=== PATIENT | male | born 1985 | race African-American/Black ===

== ENCOUNTER 2020-03-14 17:51 | Emergency (ER) | payer OTHER, SELFPAY ==
[2020-03-14 17:54] VITALS: BP 139/89; PULSE 83; RESP 16; TEMP 36; O2SAT 98
[2020-03-14 18:03] VITALS: BP 142/78; PULSE 80; RESP 18; TEMP 36; O2SAT 99
[2020-03-14 18:39] LABS: Basophils Percent Auto 0.3 % (0.2-1.2); Eosinophils Absolute Auto 0.3 K/mm3 (0-0.3); Eosinophils Percent Auto 4.2 % (0-4.4); Hemoglobin 15.7 g/dL (14.0-18.0); Immature Granulocyte Absolute 0.01 K/mm3 (0.00-0.031); Immature Granulocyte Percent A 0.2 % (0-0.5); Lymphocytes Absolute Auto 1.78 K/mm3 (0.9-3.2); Lymphocytes Percent Auto 27.8 % (18.3-44.2); Mean Corpuscular HGB Conc 34.9 g/dl (32-36); Mean Corpuscular Hemoglobin 28.5 pg (26-34); Mean Corpuscular Volume 81.8 fl (80-100); Monocytes Absolute Auto 0.5 K/mm3 (0.1-0.6); Monocytes Percent Auto 7.6 % (2.6-8.5); Neutrophils Absolute Auto 3.8 K/mm3 (1.3-6.7); Neutrophils Percent Auto 59.9 % (45.5-73.1); Platelet Count Result 271 k/mm3 (150-375); Red Cell Distribution Width 13.5 % (11.5-14.5); White Blood Count 6.4 K/mm3 (4.5-10.0)
[2020-03-14 18:45] LABS: Alanine Aminotransferase 50 U/L (4-50); Albumin Level 4.2 g/dL (3.5-5.1); Alkaline Phosphatase 111 U/L (38-126); Anion Gap 5 mmol/L (8-16); Aspartate Amino Transferase 39 U/L (17-59); Bilirubin,Total 0.5 mg/dL (0.2-1.3); Blood Urea Nitrogen 15 mg/dL (9-20); Calcium 9.2 mg/dL (8.4-10.2); Carbon Dioxide 29 mmol/L (22-30); Chloride 104 mmol/L (98-107); Estimated CRCL calculation 103 ml/min; Estimated Glomerular Filt Rate > 60; Glucose 105 mg/dL (75-110); Lipase 78 U/L (23-300); Potassium 3.8 mmol/L (3.4-5.0); Sodium 138 mmol/L (137-145)
[2020-03-14 19:18] LABS: Add Urine Microscopic? YES; Appearance Urine Clear (Clear); Bacteria Urine Trace /hpf; Bilirubin Urine Negative (Negative); Blood Urine 1+ (Negative); Color Urine Yellow (Yellow); Glucose Urine UA Negative (Negative); Ketones Urine Negative (Negative); Leukocyte Esterase Ur Negative LEU/UL (Negative); Mucus Urine Few /lpf; Nitrate Urine Negative (Negative); Protein Urine Negative (Negative); RBC Urine 0-2 /hpf (0-2); Specific Grav Ur 1.024 (1.001-1.035); Squamous Epithelial Cell Urine Rare /hpf (Few)
--- NOTE | 2020-03-14 19:25 | ED.ABDPAIN ---
HPI - Abdominal Pain General Chief Complaint: Abdominal Pain Stated Complaint: loose stools, abd pain Time Seen by Provider: 03/14/20 17:57 Source: patient Mode of arrival: ambulatory Limitations: no limitations History of Present Illness HPI narrative: Patient presents with chief complaint of needing evaluation to be able to return back to work. Patient states yesterday he had some mild nausea accompanied by loose stools so he called into work. 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 Patient denies any known Covid exposure. Patient denies any symptoms today. Related Data Home Medications Medication Instructions Recorded Confirmed No Home Medications 03/14/20 03/14/20 Allergies Allergy/AdvReac Type Severity Reaction Status Date / Time No Known Allergies Allergy Verified 03/14/20 17:59 Review of Systems Review of Systems: Narrative: CONSTITUTIONAL: Denies fever, chills, or sweats. EYES: Denies visual changes, redness, or discharge. ENT: Denies rhinorrhea, congestion, sore throat, or otalgia. CARDIOVASCULAR: Denies chest pain, palpitations, or edema. RESPIRATORY: Denies cough or dyspnea. GASTROINTESTINAL: Denies abdominal pain, nausea, vomiting, or diarrhea. GENITOURINARY: Denies dysuria or hematuria. SKIN: Denies rash or itching. MUSCULOSKELETAL: Denies back pain, joint pain, or myalgia. NEUROLOGIC: Denies headache, numbness, dizziness, or weakness. PSYCHIATRIC: Denies anxiety or depression. PMFSH Social History Social History Gender identity (if verbalized by the patient): Male Exam Narrative: Exam Narrative: GENERAL: Well-appearing, well-nourished, and in no acute distress. HEAD: Normocephalic, atraumatic. EYES: PERRLA and EOMI. NECK: Supple. No adenopathy or masses. CHEST: Clear to auscultation. No respiratory distress. No wheezes rales or rhonchi HEART: Regular rate and rhythm. No murmur heard. Normal peripheral pulses. ABDOMEN: Soft, nontender quadrant to palpation, nondistended, normal active bowel sounds. EXTREMITIES: Normal range of motion. No edema. SKIN: Warm, dry, no rash. NEURO: No focal deficits. Alert and oriented x3. PSYCH: Normal mood and affect. Course Vital Signs Vital signs: Vital Signs Temperature 96.8 F L 03/14/20 17:54 Pulse Rate 83 03/14/20 17:54 Respiratory Rate 16 03/14/20 17:54 Blood Pressure 139/89 03/14/20 17:54 Pulse Oximetry 98 03/14/20 17:54 Temperature 96.8 F L 03/14/20 18:03 Pulse Rate 80 03/14/20 18:03 Respiratory Rate 18 03/14/20 18:03 Blood Pressure 142/78 H 03/14/20 18:03 Pulse Oximetry 99 03/14/20 18:03 MDM - Abdominal Pain MDM Narrative Medical decision making narrative: Patient lab work, vitals, and urine analysis are negative for acute findings. He denies any symptoms at this time. Patient declines need for Covid testing as he does not have any symptoms and has not had any known exposures. Patient has been instructed if he does begin to be symptomatic he needs to quarantine to be tested. Otherwise patient is ready for discharge at this time. Patient instructed to return to emergency department if he has any emergent symptoms. Differential Diagnosis Differential diagnosis: Likely abdominal pain, acute appendicitis, calculus of kidney, constipation, diverticulitis, endometriosis, gastroenteritis, pancreatitis and small bowel obstruction Lab Data Result diagrams: 03/14/20 18:28 03/14/20 18:28 Labs: Lab Results 03/14/20 03/14/20 03/14/20 Range/Units 18:28 18:28 19:09 WBC 6.4 (4.5-10.0) K/mm3 RBC 5.50 (4.6-6.20) M/mm3 Hgb 15.7 (14.0-18.0) g/dL Hct 45.0 (42.0-52.0)
== END 2020-03-14 19:41 | disposition home or self-care (01) ==
PROVIDERS: Physician Assistant; Emergency Provider Emergency Medicine
DX: R19.7 Diarrhea, unspecified (principal)
CPT/HCPCS: 36415; 80053; 81001; 83690; 85025; 99283

== ENCOUNTER 2020-04-10 08:02 | Emergency (ER) | payer SELFPAY ==
[2020-04-10 08:12] VITALS: BP 134/99; PULSE 70; RESP 16; TEMP 36.6; O2SAT 94
--- NOTE | 2020-04-10 08:50 | ED.EXTPRO ---
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 Patient has superficial laceration on his right pinky finger. Patient denies any other injuries or pain. Related Data Home Medications Medication Instructions Recorded Confirmed No Home Medications 03/14/20 03/14/20 Allergies Allergy/AdvReac Type Severity Reaction Status Date / Time No Known Allergies Allergy Verified 04/10/20 08:24 Review of Systems Review of Systems: All systems reviewed & are unremarkable except as noted in HPI and below PMFSH Social History Social History Gender identity (if verbalized by the patient): Male Exam Const: General: no acute distress HENMT: Head: normal to inspection Eyes: Conjunctivae: conjunctivae normal Neck: Neck: normal visual inspection Resp: Effort & Inspection: normal respiratory effort Neuro: General: patient oriented x3 and moves all extremities Extrem: Other: Superficial laceration fifth digit right hand, neurovascular is intact No repair needed Course Vital Signs Vital signs: Vital Signs Temperature 36.6 C 04/10/20 08:12 Pulse Rate 70 04/10/20 08:12 Respiratory Rate 16 04/10/20 08:12 Blood Pressure 134/99 H 04/10/20 08:12 Pulse Oximetry 94 04/10/20 08:12 Temperature 36.6 C 04/10/20 08:12 Pulse Rate 70 04/10/20 08:12 Respiratory Rate 16 04/10/20 08:12 Blood Pressure 134/99 H 04/10/20 08:12 Pulse Oximetry 94 04/10/20 08:12 Discharge Plan Discharge Clinical Impression: Superficial laceration Patient Disposition: Home, Self-Care Condition: Improved Instructions: Antibiotic Form, Laceration (ED) Prescriptions: No Action No Home Medications RF: 0 Follow-up/Referrals: PHYSICIAN,ENVIRONMENTAL CHANGE ANALYST [Primary Care Provider] - Time of Disposition: 08:53
== END 2020-04-10 09:48 | disposition home or self-care (01) ==
PROVIDERS: Emergency Provider Emergency Medicine
DX: S61.216A Laceration without foreign body of right little finger without damage to nail, initial encounter (principal); W29.0XXA Contact with powered kitchen appliance, initial encounter
CPT/HCPCS: 99282

== ENCOUNTER 2020-05-18 14:37 | Emergency (ER) | payer OTHER, SELFPAY ==
[2020-05-18] VITALS (8 sets, daily range): BP systolic 133–138; BP diastolic 79–102; PULSE 69–78; RESP 7–20; TEMP 35.9; O2SAT 95–98
--- NOTE | ~2020-05-18 | XR_ITS ---
EXAMINATION: XR chest 2V EXAM DATE: 05/18/2020 16:11 INDICATION: Occasional cough, dizziness, lightheadedness, chills for one day. TECHNIQUE: Frontal and lateral projections of the chest obtained and reviewed. There is no prior kimberly dy for comparison. FINDINGS: The lungs are clear. There are no pleural effusions. The cardiomediastinal silhouette is within normal limits. There is no pneumothorax suspected. The bones and soft tissues are unremarkab le. IMPRESSION: Normal chest x-ray exam. Reviewed, dictated and finalized at location A. ULAR RIPSAW OPERATOR IMPRESSION: Normal chest x-ray exam.
--- NOTE | 2020-05-18 15:18 | ECG_ITS ---
Measurements Intervals [place] Rate: 74 P: 43 HI: 157 QRS: 3 QRSD: 90 T: 8 QT: 359 QTc: 398 Interpretive Statements SINUS RHYTHM NORMAL ECG Electronically Signed On 05-19-2020 7:50:05 GLUE JOINTER OPERATOR by Robb Cornejo D.O.
[2020-05-18 15:34] LABS: Basophils Percent Auto 0.5 % (0.2-1.2); Eosinophils Absolute Auto 0.3 K/mm3 (0-0.3); Eosinophils Percent Auto 5.3 % (0-4.4); Hematocrit 46.1 % (42.0-52.0); Hemoglobin 15.9 g/dL (14.0-18.0); Immature Granulocyte Absolute 0.01 K/mm3 (0.00-0.031); Immature Granulocyte Percent A 0.2 % (0-0.5); Lymphocytes Percent Auto 29.7 % (18.3-44.2); Mean Corpuscular HGB Conc 34.5 g/dl (32-36); Mean Corpuscular Hemoglobin 28.4 pg (26-34); Mean Corpuscular Volume 82.5 fl (80-100); Mean Platelet Volume 9.9 fl (7.4-10.4); Monocytes Absolute Auto 0.5 K/mm3 (0.1-0.6); Monocytes Percent Auto 8.6 % (2.6-8.5); Neutrophils Absolute Auto 3.4 K/mm3 (1.3-6.7); Neutrophils Percent Auto 55.7 % (45.5-73.1); Platelet Count Result 281 k/mm3 (150-375); Red Blood Count 5.59 M/mm3 (4.6-6.20); Red Cell Distribution Width 13.6 % (11.5-14.5); White Blood Count 6.1 K/mm3 (4.5-10.0)
[2020-05-18 15:46] LABS: Alanine Aminotransferase 39 U/L (4-50); Albumin Level 4.3 g/dL (3.5-5.1); Alkaline Phosphatase 93 U/L (38-126); Anion Gap 10 mmol/L (8-16); Aspartate Amino Transferase 34 U/L (17-59); Bilirubin,Total 0.6 mg/dL (0.2-1.3); Blood Urea Nitrogen 13 mg/dL (9-20); Calcium 9.3 mg/dL (8.4-10.2); Carbon Dioxide 25 mmol/L (22-30); Chloride 104 mmol/L (98-107); Estimated CRCL calculation 114 ml/min; Estimated Glomerular Filt Rate > 60; Glucose 97 mg/dL (75-110); Sodium 139 mmol/L (137-145)
--- NOTE | 2020-05-18 17:20 | PC.NURSE ---
patient brought back to ED room 13 with c/o an episode of dizziness at home and sweating . denies any other symptoms at this time. patient has been in our waiting area due to no beds available in this ED. no change in patient's condition since triage completed. alert. oriented. 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 EKG done at bedside. labs have been sent by triage staff. updated on expected wait time. call light in reach.
--- NOTE | 2020-05-18 17:33 | ED.DIZZY ---
HPI - Dizziness General Chief Complaint: Dizziness Stated Complaint: bodyaches,chills,dizzy Time Seen by Provider: 05/18/20 17:18 Source: patient Mode of arrival: ambulatory Limitations: no limitations History of Present Illness HPI Narrative: This is a 35 year old male that presents to the ER for lightheadedness today. Associated with chills, myalgias, cough, and sore throat. Denies fever, chest pain or shortness of breath. Related Data Home Medications Medication Instructions Recorded Confirmed No Home Medications 05/18/20 05/18/20 Allergies Allergy/AdvReac Type Severity Reaction Status Date / Time No Known Allergies Allergy Verified 05/18/20 15:16 Review of Systems Review of Systems: Narrative: CONSTITUTIONAL: Reports chills. Denies fever ENT: Reports rhinorrhea, congestion, sore throat CARDIOVASCULAR: Denies chest pain RESPIRATORY: Reports cough. Denies dyspnea. MUSCULOSKELETAL: Reports myalgia. All systems reviewed & are unremarkable except as noted in HPI and below PMFSH Social History Social History (Updated 05/18/20 @ 17:46 by Jaye Dunn PA-C) Smoking status: Never smoker Substance use: current Substance use type: marijuana Gender identity (if verbalized by the patient): Male Exam Narrative: Exam Narrative: GENERAL: Well-appearing, well-nourished, and in no acute distress. HEAD: Normocephalic, atraumatic. EYES: PERRLA and EOMI. ENT: Nares clear, no rhinorrhea or epistaxis. Mucous membranes moist. Oropharynx without tonsillar hypertrophy exudate or other lesions. Bilateral TMs pearly lobato non-bulging NECK: Supple. No adenopathy or masses. CHEST: Clear to auscultation. No respiratory distress. No wheezes rales or rhonchi HEART: Regular rate and rhythm. No murmur heard. Normal peripheral pulses. EXTREMITIES: Normal range of motion. No edema. SKIN: Warm, dry, no rash. NEURO: No focal deficits. Alert and oriented x3. Cranial nerves II through XII grossly intact PSYCH: Normal mood and affect Course Vital Signs Vital signs: Vital Signs Temperature 96.7 F L 05/18/20 15:12 Pulse Rate 78 05/18/20 15:12 Respiratory Rate 18 05/18/20 15:12 Blood Pressure 133/80 05/18/20 15:12 Pulse Oximetry 98 05/18/20 15:12 Temperature 96.7 F L 05/18/20 15:12 Pulse Rate 78 05/18/20 18:50 Respiratory Rate 18 05/18/20 15:12 Blood Pressure 133/80 05/18/20 15:12 Pulse Oximetry 98 05/18/20 15:12 MDM - Dizziness MDM Narrative Medical decision making narrative: Patient presents to the emergency department for cold symptoms. He is afebrile and nontoxic-appearing. Oxygen saturation is remained normal on room air. CBC and metabolic panel without concerning findings. UA without evidence of infection. Chest x-ray is clear. No concerning changes on EKG. SARS-CoV-2 was sent. Patient refused flu swab, orthostatics and IV fluids. Reports he is ready to go home. Was instructed to follow-up with his primary care doctor. He was given warnings to return to the ER Lab Data Attestation: I reviewed the patient's lab results. Result diagrams: 05/18/20 15:23 05/18/20 15:23 Labs: Lab Results 05/18/20 05/18/20 05/18/20 Range/Units 15:23 15:23 17:43 WBC 6.1 (4.5-10.0) K/mm3 RBC 5.59 (4.6-6.20) M/mm3 Hgb 15.9 (14.0-18.0) g/dL Hct 46.1 (42.0-52.0) % MCV 82.5 (80-100) fl MCH 28.4 (26-34) pg MCHC 34.5 (32-36) g/dl RDW 13.6 (11.5-14.5) % Plt Count 281 (150-375) k/mm3 MPV 9.9 (7.4-10.4) fl Immature Gran % (Auto) 0.2 (0-0.5) % Neut % (Auto) 55.7 (45.5-73.1) % Lymph % (Auto) 29.7 (18.3-44.2) % [place] % (Auto) 8.6 H (2.6-8.5) % Eos % (Auto) 5.3 H (0-4.4) % Baso % (Auto) 0.5 (0.2-1.2) % Lymph # (Auto) 1.80 (0.9-3.2) K/mm3 [place] # (Auto) 0.5 (0.1-0.6) K/mm3 Eos # (Auto) 0.3 (0-0.3) K/mm3 Baso # (Auto) 0.0 (0.0-0.1) K/mm3 Abs Immat Gran (auto) 0.01 (0.00-0.031) K/
--- NOTE | 2020-05-18 17:48 | PC.NURSE ---
this RN to bedside. patient refusing IV. wants to wait for all other tests to be resulted. urinal given.
--- NOTE | 2020-05-18 18:00 | PC.NURSE ---
provider updated on patient's condition and refusal of IV. patient ambulated to ED restroom. urine specimen sent to lab. patient does not want any additional vitals at this time. refuses need for orthostatic vitals. alert. oriented.
[2020-05-18 18:09] LABS: Add Urine Microscopic? YES; Appearance Urine Clear (Clear); Bilirubin Urine Negative (Negative); Blood Urine Negative (Negative); Color Urine Yellow (Yellow); Glucose Urine UA Negative (Negative); Ketones Urine Negative (Negative); Leukocyte Esterase Ur Negative LEU/UL (Negative); Mucus Urine Few /lpf; Nitrate Urine Negative (Negative); Protein Urine 1+ mg/dL (Negative); Specific Grav Ur 1.024 (1.001-1.035); WBC Urine 0-3 /hpf
[2020-05-19 19:10] LABS: SARS-CoV-2 RNA PCR Negative
== END 2020-05-18 19:20 | disposition home or self-care (01) ==
PROVIDERS: Emergency Medicine; Physician Assistant; Emergency Provider Emergency Medicine
DX: R42 Dizziness and giddiness (principal); R05 Cough; M79.10 Myalgia, unspecified site; Z20.822 Contact with and (suspected) exposure to COVID-19
CPT/HCPCS: 36415; 71046; 80053; 81001; 85025; 93005; 99283; C9803; U0003; U0005

== ENCOUNTER 2020-11-23 19:45 | Emergency (ER) | payer OTHER, SELFPAY ==
--- NOTE | ~2020-11-23 | XR_ITS ---
XR knee RT min 4V DATE: 11/23/2020 20:16 INDICATION: Generalized knee pain, swelling TECHNIQUE: Portable 4 view examination COMPARISON: None FINDINGS: No fracture or dislocation or joint effusion. Joint spaces are well preserved. No periostea l reaction or bone destruction. No radiopaque intra-articular loose body or chondrocalcinosis. IMPRESSION: Negative Reviewed, dictated and finalized at location A. IMPRESSION: Negative
[2020-11-23 19:55] VITALS: BP 126/70; PULSE 78; RESP 16; TEMP 36.9; O2SAT 99
--- NOTE | 2020-11-23 20:04 | ED.LOWEXIN ---
HPI - Extremity Injury (Lower) General Chief Complaint: Extremity Injury, Lower Stated Complaint: knee swelling, tingling Time Seen by Provider: 11/23/20 19:50 Source: patient Mode of arrival: ambulatory Limitations: no limitations History of Present Illness HPI Narrative: This is a 35 year old male that presents to the ER for right knee pain x 2 days. Reports he went for a run and since has had pain and swelling in the knee. Worse with movement and weight bearing. Relieved with rest. Reports tingling in the leg as well. Has been icing and taking Ibuprofen with little relief. Denies fever, warmth or erythema. Related Data Home Medications Medication Instructions Recorded Confirmed No Home Medications 05/18/20 05/18/20 Allergies Allergy/AdvReac Type Severity Reaction Status Date / Time No Known Allergies Allergy Verified 05/18/20 15:16 Review of Systems Review of Systems: CONSTITUTIONAL: Denies fever SKIN: Denies erythema MUSCULOSKELETAL: Reports joint pain, and myalgia. NEUROLOGIC: Denies numbness All systems reviewed & are unremarkable except as noted in HPI and below PMFSH Past Medical History Medical History (Updated 11/23/20 @ 20:37 by Jaye Dunn PA-C) No active medical problems Social History Social History (Updated 05/18/20 @ 17:46 by Jaye Dunn PA-C) Smoking status: Never smoker Substance use: current Substance use type: marijuana Gender identity (if verbalized by the patient): Male Exam Narrative: GENERAL: Well-appearing, well-nourished, and in no acute distress. HEAD: Normocephalic, atraumatic. EYES: EOMI. EXTREMITIES: Normal range of motion. No obvious edema about the right knee. No erythema or warmth. Normal DP pulses SKIN: Warm, dry, no rash. NEURO: No focal deficits. Alert and oriented x3. PSYCH: Normal mood and affect Course Vital Signs Vital signs: Vital Signs Temperature 98.5 F 11/23/20 19:55 Pulse Rate 78 11/23/20 19:55 Respiratory Rate 16 11/23/20 19:55 Blood Pressure 126/70 11/23/20 19:55 Pulse Oximetry 99 11/23/20 19:55 Temperature 98.5 F 11/23/20 19:55 Pulse Rate 78 11/23/20 19:55 Respiratory Rate 16 11/23/20 19:55 Blood Pressure 126/70 11/23/20 19:55 Pulse Oximetry 99 11/23/20 19:55 MDM - Extremity Injury (Lower) MDM Narrative Medical decision making narrative: Patient presents to the ER for right knee pain after running two days ago. No erythema or warmth of the knee. No obvious edema. He has normal range of motion in the knee. He is neurovascularly intact. Right knee x-rays without acute osseous abnormalities. Patient given Eliud wrap and crutches. Instructed to rest, ice and take [id number] pain medication as needed. He is to follow-up with orthopedics. He was given warnings to return to the ER Imaging Data Radiologist's impression: ITS Impressions Knee X-Ray 11/23/20 20:22 IMPRESSION: Negative Critical Care Time Critical Care Time Critical Care Time: No Discharge Plan Discharge Clinical Impression: Acute internal derangement of knee Qualifiers: Laterality: right Qualified Code(s): M23.91 - Unspecified internal derangement of right knee Patient Disposition: Home, Self-Care Condition: Stable Instructions: Knee Sprain (ED) Additional Instructions: Return to the ER if you experience fever, redness and swelling of your leg, numbness or any other symptoms that are concerning to you Wear ELIUD wrap and use crutches. No weight on the affected leg until able to bear weight without pain. Ice and elevate extremity. Pain medication as needed and directed. Follow up with orthopedics for further care. Prescriptions: No Action No Home Medications RF: 0 Follow-up/Referrals: Jr Zapata MD [Physician] - 1 Week PHYSICIAN NOT ON STAFF,NONSTAFF [Primary Care Provider] -
[2020-11-23] MEDS: ACETAMINOPHEN 500 MG TABLET 1000 MG PO (20:28)
[2020-11-23] MEDS: KETOROLAC (*BKC) 60 MG/2 ML VIAL IM (20:29)
[2020-11-23 21:47] VITALS: BP 120/79; PULSE 71; RESP 18; O2SAT 99
== END 2020-11-23 21:48 | disposition home or self-care (01) ==
PROVIDERS: Emergency Provider Emergency Medicine
DX: M23.91 Unspecified internal derangement of right knee (principal); S89.91XA Unspecified injury of right lower leg, initial encounter; X50.9XXA Other and unspecified overexertion or strenuous movements or postures, initial encounter; Y93.02 Activity, running
CPT/HCPCS: 73564; 96372; 99283; A9270; J1885

== ENCOUNTER 2020-12-21 07:29 | Outpatient (CLI) | payer OTHER, SELFPAY ==
--- NOTE | ~2020-12-21 | MR_ITS ---
EXAMINATION: MR knee RT wo con DATE: 12/21/2020 08:20 INDICATION: Right knee pain with frequent locking and swelling and change in gait. TECHNIQUE: Magnetic resonance imaging (MRI) of the right knee was performed without intravenous contr ast. Sequences included coronal PD-weighted FSE, coronal PD-weighted FS FSE, sagittal T2-weighted FS E, sagittal PD-weighted FS FSE and axial PD weighted fat saturated FSE. COMPARISON: None. FINDINGS: Medial compartment: Medial meniscus is normal. Shallow chondral surface regular date along the anterior weightbearing med ial femoral condyle. Lateral compartment: Complex lateral meniscal tear extending to the anterior horn to the posterior horn. This includes a l ongitudinal tear plane extending with a somewhat oblique vertical configuration extending between the superior and inferior articular surfaces and with secondary longitudinal horizontal tear plane exten ding to the inferior articular surface near the free edge of the posterior horn. Partial-thickness ca rtilage loss with mild chondral surface irregularity along the periphery of the lateral tibial platea u underlying the torn meniscus. Partial-thickness cartilage loss with relatively smooth chondral surf matt along the posterior weightbearing lateral femoral condyle. Patellofemoral compartment: Partial-thickness chondral fissure involving less than 50% the cartilage thickness at the central asp ect of both the medial and lateral patellar facets. Shallow chondral fissure at the inferior aspect t rochlear groove. Ligaments and tendons: Anterior and posterior cruciate ligaments are normal. The medial collateral ligament and fibular jagruti ateral ligament complex are normal. Minimal tendinopathy at the patellar insertions of the distal kavon driceps and proximal patellar tendons. The visualized medial and lateral hamstring tendons as well as the iliotibial band are normal. Fluid: Small right knee joint effusion. No loose osteochondral bodies identified. Osseous/other: Normal marrow signal. No fracture or pathologic marrow replacing process. IMPRESSION: 1. Complex lateral meniscal tear extending from anterior to posterior horn. 2. Minimal to mild osteoarthritis with regions of moderate grade chondromalacia in all 3 compartments . 3. Small right knee joint effusion. Reviewed, dictated and finalized at location A. IMPRESSION: 1. Complex lateral meniscal tear extending from anterior to posterior horn. 2. Minimal to mild osteoarthritis with regions of moderate grade chondromalacia in all 3 compartments. 3. Small right knee joint effusion.
== END 2020-12-21 07:30 | disposition home or self-care (01) ==
PROVIDERS: PCP Internal Medicine; Visit Provider Nurse Practitioner Family
DX: M25.461 Effusion, right knee (principal); S83.271A Complex tear of lateral meniscus, current injury, right knee, initial encounter; X58.XXXA Exposure to other specified factors, initial encounter
CPT/HCPCS: 73721

== ENCOUNTER 2021-01-12 16:19 | Emergency (ER) | payer OTHER, SELFPAY ==
[2021-01-12 16:29] VITALS: BP 135/84; PULSE 91; RESP 16; TEMP 36.7; O2SAT 100
--- NOTE | 2021-01-12 16:49 | ED.DENTAL ---
HPI - Dental/Oral General Chief complaint: Dental/Oral Stated complaint: Tooth Pain Time Seen by Provider: 01/12/21 16:49 Source: patient Mode of arrival: ambulatory Limitations: no limitations History of Present Illness HPI Narrative: Jaylin Sparks is a 35 yo male with no PMH who [facility] right lower molar pain started few days ago. He has surgery scheduled on 25 January for a torn meniscus. And wanted to get his tooth taken care of before hand, needs a new dentist since his insurance just changed. States he has been taking Tylenol and ibuprofen is not working for the pain; it is very sensitive if his tongue touches it Related Data Allergies Allergy/AdvReac Type Severity Reaction Status Date / Time No Known Allergies Allergy Verified 01/12/21 16:50 Review of Systems Review of Systems: CONSTITUTIONAL: Denies fever, chills, sweats. EYES: Denies visual changes, redness, discharge. ENT: Denies rhinorrhea, congestion, sore throat, otalgia. Right molar tooth pain CARDIOVASCULAR: Denies chest pain, palpitations, edema. RESPIRATORY: Denies dyspnea, wheezing, cough GASTROINTESTINAL: Denies abdominal pain, nausea, vomiting, diarrhea. GENITOURINARY: Denies dysuria, hematuria, abnormal discharge SKIN: Denies rash or itching. NEUROLOGIC: Denies numbness, or focal weakness. PSYCHIATRIC: Denies anxiety or depression. PMFSH Past Medical History Medical History Lateral meniscus tear No active medical problems Right knee pain Family History Family History (Updated 01/12/21 @ 16:56 by Vanda Lockhart CNP) Mother Lupus Other Diabetes mellitus Hypertension Social History Social History Alcohol intake: current Drinks per week: 2 Substance use: current Substance use type: marijuana Gender identity (if verbalized by the patient): Male Comments At time of signature, I agree with nursing past medical, surgical, social and family history. There is no relevant family history pertinent to the presenting complaint. Exam Narrative: GENERAL: This is a well-nourished, well-developed patient, in mild distress. HEAD: normocephalic, atraumatic. EYES: Sclera clear/white. Vision is grossly intact. EARS: External ears normal, auditory canals clear and without drainage, TMs normal without perforation. Hearing grossly intact. NOSE: External nose normal without nasal discharge, nares without redness, no rhinorrhea. Mouth: Right lower molar pain, no obvious swelling good dentition THROAT: Mucous membranes moist, NECK: Neck supple, non-tender CARDIOVASCULAR: Regular rate and rhythm without murmurs, gallops, or rubs. RESPIRATORY: Clear to auscultation. Breath sounds equal bilaterally. No wheezes, rales, or rhonchi. GASTROINTESTINAL: Abdomen soft, non-tender, SKIN: warm, intact with no suspicious lesions or rash, good texture and turgor. NEURO: awake, alert, and oriented to person, place and time. EXTREMITIES: Normal range of motion. BACK: Nontender without deformity Course Course Emergency Course: [facility] right lower dental pain Started on Amoxil, Tylenol 3, viscous lidocaine Vital Signs Vital signs: Vital Signs Temperature 98.0 F 01/12/21 16:29 Pulse Rate 91 01/12/21 16:29 Respiratory Rate 16 01/12/21 16:29 Blood Pressure 135/84 01/12/21 16:29 Pulse Oximetry 100 01/12/21 16:29 Temperature 98.0 F 01/12/21 16:29 Pulse Rate 91 01/12/21 16:29 Respiratory Rate 16 01/12/21 16:29 Blood Pressure 135/84 01/12/21 16:29 Pulse Oximetry 100 01/12/21 16:29 MDM - Dental/Oral Differential Diagnosis Differential diagnosis: Likely dental caries, toothache, dental abscess, fracture of tooth and other Critical Care Time Critical Care Time Critical Care Time: No Discharge Plan Discharge Clinical Impression: Fracture of tooth Q
== END 2021-01-12 17:03 | disposition home or self-care (01) ==
PROVIDERS: Emergency Provider Nurse Practitioner
DX: S02.5XXA Fracture of tooth (traumatic), initial encounter for closed fracture (principal); X58.XXXA Exposure to other specified factors, initial encounter
CPT/HCPCS: 99213; G0463

== ENCOUNTER 2021-01-25 01:44 | Day surgery (SDC) | payer OTHER, SELFPAY ==
[2021-01-21 15:11] VITALS: BMI 28.7
[2021-01-25] VITALS (8 sets, daily range): BP systolic 98–145; BP diastolic 64–94; PULSE 68–82; RESP 15–20; TEMP 36.2–36.4; O2SAT 98–99
--- NOTE | 2021-01-25 08:38 | P.PNAN_ITS ---
Anes - Initial Pre Proc Eval Procedure: Operation Date: 01/25/21 10:00 Proposed Procedures p Right Knee Arthroscopy, Proceed As Indicated - Jr Zapata MD Date/Time: 01/25/21 08:38 Surgeon: Jr Zapata MD Pre Op Diagnosis: right knee medial meniscus tear Patient Data Age: 35 Gender: M Height: 1.85 m Weight: 98.63 kg Allergies Allergy/AdvReac Type Severity Reaction Status Date / Time No Known Allergies Allergy Verified 01/25/21 08:28 Home Medications Medication Instructions Recorded Confirmed Type No Home Medications 01/25/21 01/25/21 History Patient hx anesthesia problems: none Family hx anesthesia problems: none Results Review: All pre-operative results and documents have been reviewed as part of the pre-operative evaluation. [facility] Past Medical History Medical History Lateral meniscus tear No active medical problems Right knee pain Family History Family History (Updated 01/12/21 @ 16:56 by Vanda Lockhart CNP) Mother Lupus Other Diabetes mellitus Hypertension Social History Social History Smoking status: Never smoker Alcohol intake: current Drinks per week: 2 Substance use: current Substance use type: marijuana Other substance usage details: twice a day Living arrangements: with family Gender identity (if verbalized by the patient): Male Spiritual care concerns: No Anes - Eval Final PreProcedure Day of Procedure 01/25/21 08:38 Patient weight: overweight Heart: regular rate and rhythm Lungs: clear to auscultation and normal air movement Airway: Mallampati scale class II Neurological: alert and oriented Last oral intake: >/= 8 hours ASA classification: II Emergent: no Anesthetic plan: proceed Anesthesia type and monitoring: general LMA and standard monitoring Results Review: All pre-operative results and documents have been reviewed as part of the pre-operative evaluation. Informed Consent: The patient's anesthetic plan and its attendant risks and benefits were discussed with the patient/family/POA. Questions were solicited and answers provided to the satisfaction of the patient/family/POA.
[2021-01-25] MEDS: ACETAMINOPHEN 500 MG TABLET 1000 MG PO (08:40)
[2021-01-25] MEDS: CELECOXIB 200 MG CAPSULE PO (08:40)
[2021-01-25] MEDS: LACTATED RINGERS 1,000 ML 30 ML IV CONT ×2 (08:50→11:33)
--- NOTE | 2021-01-25 09:59 | WPDHPUPDATE1 ---
History and Physical Update Update Date/Time: 01/25/21 09:59 History and Physical has been reviewed, including an updated exam of the patient. There are NO changes in the patient's condition. Risks, benefits, and alternatives have been discussed and questions answered. Patient agrees to proceed with procedure.
[2021-01-25] MEDS: ceFAZolin 2 GM/D5W 50 ML 2 GM/50 ML BAG IVPB (10:04)
--- NOTE | 2021-01-25 11:45 | W.PM.PROC2 ---
Procedure Note - Detailed Date of Procedure 01/25/21 Pre-op Diagnosis right knee lateral meniscus tear Post-op Diagnosis same Procedure Performed RIGHT KNEE SCOPE Surgeon Jr Zapata MD Anesthesia general Description of Procedure PATIENT WAS TAKEN TO THE OPERATING ROOM SUITE. ANESTHESIA WAS INDUCED. THE RIGHT LEG WAS PREPPED AND DRAPED STERILE. TROCARS WERE PLACED IN TO THE KNEE JOINT IN THE USUAL FASHION. THE CAMERA WAS INTRODUCED. THERE WAS MODERATE CHONDROMALACIA TO THE PATELLA FEMORAL JOINT. THERE WAS A LOT OF SYNOVITIS IN ALL COMPARTMENTS. THE MEDIAL COMPARTMENT SHOWED NO CHONDROMALACIA TO THE MEDIAL FEMORAL CONDYLE OR PLATEAU. THERE WAS NO MEDIAL MENISCUS TEAR. THE ACL WAS INTACT. THE LATERAL MENISCUS WAS TORN AT THE MID SUBSTANCE AND EXTENDED TO THE POSTERIOR AND MID ANTERIOR HORNS. THE TEAR WAS CONFINED TO THE WHITE ZONE AND WAS A COMPLEX TEAR. THE TEAR WAS RESECTED. THE LATERAL COMPARTMENT HAD NO CHONDROMALACIA AT THE LATERAL PLATEAU OR LATERAL FEMORAL CONDYLE. A SYNOVECTOMY WAS PREFORMED. THE PATELLO FEMORAL JOINT UNDERWENT CHONDROPLASTY OVER THE PATELLA. THERE WAS GRADE 2 CHONDROMALACIA IN A SMALL SECTION OF THE OF THE PATELLA. SYNOVECTOMY WAS PREFORMED IN THE SUPERIOR MEDIAL COMPARTMENT. THE WOUNDS WERE APPROXIMATED WITH 4.0 NYLON. STERILE DRESSING WAS APPLIED. PATIENT WAS EXTUBATED. Estimated Blood Loss 5 Complications No immediate complications Condition stable Disposition PACU
[2021-01-25] MEDS: fentaNYL CITRATE INJ (*CRX) 100 MCG/2 ML VIAL 25 MCG IV PUSH (11:57)
[2021-01-25] MEDS: oxyCODONE HCL (*CRX) 5 MG TAB IR PO (13:16)
== END 2021-01-25 13:40 | disposition home or self-care (01) ==
PROVIDERS: Visit Provider Orthopaedic Surgery
PROC: (CPT 29870; principal; 2021-01-25 10:00)
DX: S83.271A Complex tear of lateral meniscus, current injury, right knee, initial encounter (principal); M22.41 Chondromalacia patellae, right knee; M65.9 Synovitis and tenosynovitis, unspecified; X58.XXXA Exposure to other specified factors, initial encounter; Y93.02 Activity, running; Y92.9 Unspecified place or not applicable; Y99.9 Unspecified external cause status
CPT/HCPCS: 29881; 29876; A9270; J0690; J1100; J2250; J2405; J2704; J3010; J7120